=== PATIENT | female | born 1945 | race Caucasian/White ===

== ENCOUNTER → 2017-09-05 | Outpatient (CLI) | payer MEDICARE, OTHER | LOC: COL.LAB 11:03 | DX: Z01.812 Encounter for preprocedural laboratory examination (principal) ==

== ENCOUNTER 2017-09-28 13:13 | Inpatient (IN) | payer MEDICARE, OTHER ==
[~2017-09-28] VITALS: Ht 157.5 cm; Wt 59.5 kg
[2017-09-28 13:20] VITALS: BP 137/86; PULSE 82; TEMP 98
[2017-09-28] MEDS ORDERED: BRILINTA90 MG PO (13:24)
[2017-09-28] MEDS ORDERED: COREG 6.256.25 MG/TA PO (13:25)
[2017-09-28] MEDS ORDERED: PRINIVIL2.5 MG PO (13:26)
[2017-09-28] MEDS ORDERED: CRESTOR 10MG10 MG PO (13:27)
[2017-09-28] MEDS ORDERED: ASPIRIN E.C. 8181 MG PO (13:27)
[2017-09-28] MEDS ORDERED: FERREX 150150 MG PO (13:28)
[2017-09-28 13:48] LABS: BASO % 0.3 % (0.0-2.0); GRAN # 13.5 (1.4-6.5); GRAN % 87.9 % (42.2-75.2); LYMPH # 0.9 (1.2-3.4); LYMPH % 5.7 % (20.0-51.0); MEAN CELL VOLUME 93 fl (80.0-100.0); MEAN CORPUSCULAR HGB CONC 33 g/dl (33.0-37.0); MEAN PLATELET VOLUME 9.2 fl (7.4-10.4); MONO # 0.8 (0.1-0.6); MONO % 5.4 % (1.7-9.3); PLATELET COUNT 379 K/mm3 (130-400); RED BLOOD COUNT 3.59 M/mm3 (4.10-5.30); REDCELL DISTRIBUTION WIDTH-CV 14.3 % (11.5-14.5)
[2017-09-28 13:51] LABS: INR 1.2 (0.8-3.0); PROTHROMBIN TIME 13.4 SECONDS (9.7-12.8)
[2017-09-28 13:55] LABS: HEMATOCRIT 33.4 % (37.0-47.0); HEMOGLOBIN 10.9 g/dl (12.5-16.0); MEAN CORPUSCULAR HEMOGLOBIN 30 pg (27.0-31.0)
[2017-09-28 13:56] LABS: ALANINE AMINOTRANSFERASE 33 U/L (9-52); ALBUMIN 3.3 gm/dL (3.5-5.0); ALKALINE PHOSPHATASE 92 U/L (50-136); ANION GAP 9 mmol/L (7-16); AST,SGOT 31 U/L (15-37); BLOOD UREA NITROGEN 19 mg/dL (7-17); CALCIUM 8.7 mg/dL (8.4-10.2); CARBON DIOXIDE 22 mmol/L (22-30); CHLORIDE 107 mmol/L (98-107); CREATININE, serum 0.63 mg/dL (0.52-1.25); GLUCOSE 124 mg/dL (74-106); SODIUM 138 mmol/L (137-145); TOTAL PROTEIN 6.3 gm/dL (6.4-8.2)
[2017-09-28 14:03] LABS: PRE ALBUMIN 21.5 mg/dL (17.6-36.0)
[2017-09-28 14:12] LABS: TROPONIN-I < 0.012 ng/mL (0.000-0.034)
[2017-09-28 15:11] LABS: COLLECTION METHOD CATHETER
[2017-09-28 15:28] LABS: MUCOUS Present /lpf; PH 5 (5-8); SQUAMOUS EPITHELIAL 0-2 /hpf; URINE APPEARANCE Clear; URINE BACTERIA Rare /hpf; URINE BILIRUBIN Negative (NEGATIVE); URINE BLOOD Negative (NEGATIVE); URINE COLOR Yellow; URINE GLUCOSE Negative (NEGATIVE); URINE KETONE 1+ (NEGATIVE); URINE LEUKOCYTE ESTERASE Negative (NEGATIVE); URINE NITRATE Negative (NEGATIVE); URINE PROTEIN(semi-quant) Negative (NEGATIVE); URINE RBC 0-2 /hpf; URINE UROBILINOGEN Negative (NEGATIVE)
[2017-09-28] MEDS ORDERED: VITAMIN C500 MG PO (16:27)
[2017-09-28] MEDS ORDERED: B-121000 MCG PO (16:28)
[2017-09-28] MEDS ORDERED: VITAMIN D 1001000 IU PO (16:28)
[2017-09-28] MEDS ORDERED: SYNTHROID0.075 MG/T PO (16:28)
[2017-09-28] MEDS ORDERED: MULTI VITAMINS1 TAB PO (16:29)
[2017-09-28] MEDS ORDERED: CYTOMEL 2525 MCG/TAB PO (16:29)
[2017-09-28] MEDS ORDERED: VITAMIN B COMPL1 SGL PO (16:31)
[2017-09-28] MEDS ORDERED: NATURAL ZINC50 MG PO (16:31)
[2017-09-28] MEDS ORDERED: NAPROSYN500 MG PO (16:31)
[2017-09-28] MEDS ORDERED: NITROSTAT0.4 MG/TAB SL (16:32)
[2017-09-28] MEDS ORDERED: IODORAL PO (16:32)
[2017-09-28] MEDS ORDERED: ROXICODONE 55 MG/TAB PO (16:33)
[2017-09-28 16:37] LABS: TSH w REFLEX 0.015 uIU/mL (0.465-4.680)
[2017-09-28 17:49] VITALS: BP 118/51; PULSE 93; TEMP 98
[2017-09-28 20:26] VITALS: BP 111/62; PULSE 91; TEMP 98.3
[2017-09-28 21:35] VITALS: BP 111/62; PULSE 92; TEMP 98.3
[2017-09-29] VITALS (10 sets, daily range): BP systolic 103–136; BP diastolic 38–76; PULSE 48–102; TEMP 97.7–98.3
[2017-09-29 06:47] LABS: BASO % 0.4 % (0.0-2.0); EOS % 0.2 % (0-4.0); GRAN # 8.7 (1.4-6.5); GRAN % 76.5 % (42.2-75.2); LYMPH # 1.5 (1.2-3.4); LYMPH % 13.3 % (20.0-51.0); MEAN CELL VOLUME 94 fl (80.0-100.0); MEAN CORPUSCULAR HGB CONC 32 g/dl (33.0-37.0); MEAN PLATELET VOLUME 9.4 fl (7.4-10.4); MONO % 9.2 % (1.7-9.3); PLATELET COUNT 363 K/mm3 (130-400); RED BLOOD COUNT 3.23 M/mm3 (4.10-5.30); REDCELL DISTRIBUTION WIDTH-CV 14.6 % (11.5-14.5)
[2017-09-29 06:52] LABS: HEMATOCRIT 30.5 % (37.0-47.0); HEMOGLOBIN 9.8 g/dl (12.5-16.0); MEAN CORPUSCULAR HEMOGLOBIN 30 pg (27.0-31.0)
[2017-09-29 06:59] LABS: ANION GAP 9 mmol/L (7-16); BLOOD UREA NITROGEN 18 mg/dL (7-17); CALCIUM 8.9 mg/dL (8.4-10.2); CARBON DIOXIDE 24 mmol/L (22-30); CHLORIDE 103 mmol/L (98-107); CREATININE, serum 0.61 mg/dL (0.52-1.25); GLUCOSE 97 mg/dL (74-106); MAGNESIUM 1.7 mg/dL (1.6-2.3); SODIUM 136 mmol/L (137-145)
[2017-09-29 07:11] LABS: TROPONIN-I < 0.012 ng/mL (0.000-0.034)
[2017-09-30] VITALS (12 sets, daily range): BP systolic 76–131; BP diastolic 42–65; PULSE 76–96; TEMP 97–98.6
[2017-09-30 19:04] LABS: HEMATOCRIT 37.5 % (37.0-47.0)
[2017-09-30 19:05] LABS: HEMOGLOBIN 12.5 g/dl (12.5-16.0)
[2017-10-01] VITALS (15 sets, daily range): BP systolic 73–122; BP diastolic 42–58; PULSE 73–88; TEMP 97–98.7
[2017-10-01 01:15] LABS: BASO % 0.1 % (0.0-2.0); GRAN # 11.9 (1.4-6.5); HEMATOCRIT 30.2 % (37.0-47.0); HEMOGLOBIN 10.1 g/dl (12.5-16.0); LYMPH # 0.8 (1.2-3.4); LYMPH % 5.6 % (20.0-51.0); MEAN CELL VOLUME 90 fl (80.0-100.0); MEAN CORPUSCULAR HEMOGLOBIN 30 pg (27.0-31.0); MEAN CORPUSCULAR HGB CONC 33 g/dl (33.0-37.0); MEAN PLATELET VOLUME 9.4 fl (7.4-10.4); MONO # 0.8 (0.1-0.6); PLATELET COUNT 189 K/mm3 (130-400); RED BLOOD COUNT 3.37 M/mm3 (4.10-5.30)
[2017-10-01 01:27] LABS: ALBUMIN 2.1 gm/dL (3.5-5.0); BILIRUBIN,TOTAL 1.3 mg/dL (0.0-1.0); CALCIUM 7.3 mg/dL (8.4-10.2); CREATININE, serum 0.47 mg/dL (0.52-1.25); POTASSIUM 4.1 mmol/L (3.4-5.0); TOTAL PROTEIN 4.6 gm/dL (6.4-8.2)
[2017-10-01 07:52] LABS: BASO % 0.2 % (0.0-2.0); GRAN % 82.4 % (42.2-75.2); LYMPH % 9.1 % (20.0-51.0); MEAN CELL VOLUME 89 fl (80.0-100.0); MEAN CORPUSCULAR HGB CONC 34 g/dl (33.0-37.0); MEAN PLATELET VOLUME 9.7 fl (7.4-10.4); MONO # 0.9 (0.1-0.6); MONO % 7.8 % (1.7-9.3); PLATELET COUNT 185 K/mm3 (130-400); RED BLOOD COUNT 2.94 M/mm3 (4.10-5.30); REDCELL DISTRIBUTION WIDTH-CV 13.9 % (11.5-14.5)
[2017-10-01 08:08] LABS: INR 1.3 (0.8-3.0); PROTHROMBIN TIME 15.1 SECONDS (9.7-12.8)
[2017-10-01 08:12] LABS: HEMATOCRIT 26.1 % (37.0-47.0); HEMOGLOBIN 8.8 g/dl (12.5-16.0); MEAN CORPUSCULAR HEMOGLOBIN 30 pg (27.0-31.0)
[2017-10-01 08:34] LABS: CALCIUM 7.6 mg/dL (8.4-10.2); CREATININE, serum 0.51 mg/dL (0.52-1.25); POTASSIUM 4.1 mmol/L (3.4-5.0)
[2017-10-01 14:37] LABS: HEMATOCRIT 27.5 % (37.0-47.0); HEMOGLOBIN 9.2 g/dl (12.5-16.0)
[2017-10-01 20:35] LABS: HEMATOCRIT 27.2 % (37.0-47.0); HEMOGLOBIN 9.3 g/dl (12.5-16.0)
[2017-10-02] VITALS (12 sets, daily range): BP systolic 86–120; BP diastolic 33–60; PULSE 78–90; TEMP 36.8
[2017-10-02 04:41] LABS: BASO % 0.2 % (0.0-2.0); EOS % 0.1 % (0-4.0); GRAN # 6.6 (1.4-6.5); LYMPH # 1.5 (1.2-3.4); MEAN CELL VOLUME 89 fl (80.0-100.0); MEAN CORPUSCULAR HGB CONC 34 g/dl (33.0-37.0); MEAN PLATELET VOLUME 10.4 fl (7.4-10.4); MONO # 1.1 (0.1-0.6); MONO % 12.2 % (1.7-9.3); PLATELET COUNT 165 K/mm3 (130-400); RED BLOOD COUNT 2.88 M/mm3 (4.10-5.30); REDCELL DISTRIBUTION WIDTH-CV 14.8 % (11.5-14.5)
[2017-10-02 04:44] LABS: HEMATOCRIT 25.5 % (37.0-47.0); HEMOGLOBIN 8.7 g/dl (12.5-16.0); MEAN CORPUSCULAR HEMOGLOBIN 30 pg (27.0-31.0)
[2017-10-02 04:48] LABS: INR 1.1 (0.8-3.0); PROTHROMBIN TIME 13.2 SECONDS (9.7-12.8)
[2017-10-02 04:58] LABS: CALCIUM 7.6 mg/dL (8.4-10.2); CREATININE, serum 0.46 mg/dL (0.52-1.25); POTASSIUM 3.8 mmol/L (3.4-5.0)
[2017-10-02 10:14] LABS: HEMATOCRIT 27.3 % (37.0-47.0); HEMOGLOBIN 9.1 g/dl (12.5-16.0)
[2017-10-02 15:56] LABS: HEMATOCRIT 26.3 % (37.0-47.0); HEMOGLOBIN 8.9 g/dl (12.5-16.0)
[2017-10-02 22:22] LABS: HEMATOCRIT 24.7 % (37.0-47.0); HEMOGLOBIN 8.4 g/dl (12.5-16.0)
[2017-10-03 02:04] VITALS: BP 113/53; PULSE 85; TEMP 98
[2017-10-03 05:19] VITALS: BP 126/69; PULSE 83; TEMP 97.8
[2017-10-03 07:05] LABS: BASO % 0.3 % (0.0-2.0); EOS # 0.1 (0.0-0.7); EOS % 1.2 % (0-4.0); GRAN # 6.7 (1.4-6.5); GRAN % 71.4 % (42.2-75.2); LYMPH # 1.4 (1.2-3.4); LYMPH % 14.8 % (20.0-51.0); MEAN CELL VOLUME 92 fl (80.0-100.0); MEAN CORPUSCULAR HGB CONC 33 g/dl (33.0-37.0); MEAN PLATELET VOLUME 10.2 fl (7.4-10.4); MONO # 1.1 (0.1-0.6); MONO % 11.1 % (1.7-9.3); PLATELET COUNT 179 K/mm3 (130-400); RED BLOOD COUNT 2.97 M/mm3 (4.10-5.30); REDCELL DISTRIBUTION WIDTH-CV 15.2 % (11.5-14.5)
[2017-10-03 07:06] LABS: HEMATOCRIT 27.2 % (37.0-47.0); MEAN CORPUSCULAR HEMOGLOBIN 30 pg (27.0-31.0)
[2017-10-03 07:10] LABS: INR 1.1 (0.8-3.0); PROTHROMBIN TIME 12.9 SECONDS (9.7-12.8)
[2017-10-03 07:14] LABS: CREATININE, serum 0.46 mg/dL (0.52-1.25); POTASSIUM 3.8 mmol/L (3.4-5.0)
[2017-10-03] MEDS ORDERED: COREG 3.123.125 MG/T PO (08:02)
[2017-10-03] MEDS ORDERED: GOOD NEIGH1200 MG/15 PO (08:03)
[2017-10-03] MEDS ORDERED: DULCOLAX S10 MG/SUPP RC (08:03)
[2017-10-03] MEDS ORDERED: SENOKOT S 50 MG1 TAB PO ×2 (08:04→14:06)
[2017-10-03] MEDS ORDERED: NORCO 325 MG-7.1 TAB PO (08:10)
[2017-10-03] MEDS ORDERED: FERREX 150150 MG PO (09:18)
[2017-10-03 10:00] VITALS: BP 100/57; PULSE 81; TEMP 98.3
== END 2017-10-03 11:15 | DRG 466 ==
LOC: SURG 13:13
PROVIDERS: Nurse Anesthetist, Certified Registered; Nurse Practitioner; Nurse Practitioner Family; Orthopaedic Surgery; Physician Assistant
PROC: 0SP90JZ Removal of Synthetic Substitute from Right Hip Joint, Open Approach (ICD-10-PCS; 2017-09-30)
PROC: 0SR90JA Replacement of Right Hip Joint with Synthetic Substitute, Uncemented, Open Approach (ICD-10-PCS; principal; 2017-09-30 15:00)
DX: S72.001A Fracture of unspecified part of neck of right femur, initial encounter for closed fracture (principal); I21.3 ST elevation (STEMI) myocardial infarction of unspecified site; M97.01XA Periprosthetic fracture around internal prosthetic right hip joint, initial encounter; I50.22 Chronic systolic (congestive) heart failure; E87.1 Hypo-osmolality and hyponatremia; W18.30XA Fall on same level, unspecified, initial encounter; Z95.5 Presence of coronary angioplasty implant and graft; Z85.42 Personal history of malignant neoplasm of other parts of uterus; I25.10 Atherosclerotic heart disease of native coronary artery without angina pectoris; D50.0 Iron deficiency anemia secondary to blood loss (chronic); I95.81 Postprocedural hypotension
CPT/HCPCS: 99223-AI; 99232-AI; 99233-AI; 99239; A9284; C1776; J0690; J1100; J2060; J2250; J2270; J2704; J2765; J2795; J3010; J7030; J7070; J7120; J7121; P9016

== ENCOUNTER 2017-10-03 10:33 | Inpatient (IN) | payer MEDICARE, OTHER ==
[~2017-10-03] VITALS: Ht 152.4 cm; Wt 55.3 kg
[~2017-10-03 10:33] MED LIST: ASPIRIN E.C. 8181 MG PO; B-121000 MCG PO; BRILINTA90 MG PO; COREG 3.123.125 MG/T PO; COREG 6.256.25 MG/TA PO; CRESTOR 10MG10 MG PO; CYTOMEL 2525 MCG/TAB PO; DULCOLAX S10 MG/SUPP RC; FERREX 150150 MG PO; GOOD NEIGH1200 MG/15 PO; IODORAL PO; MULTI VITAMINS1 TAB PO; NAPROSYN500 MG PO; NATURAL ZINC50 MG PO; NITROSTAT0.4 MG/TAB SL; NORCO 325 MG-7.1 TAB PO; PRINIVIL2.5 MG PO; ROXICODONE 55 MG/TAB PO; SENOKOT S 50 MG1 TAB PO; SYNTHROID0.075 MG/T PO; VITAMIN B COMPL1 SGL PO; VITAMIN C500 MG PO; VITAMIN D 1001000 IU PO
[2017-10-03] MEDS ORDERED: SENOKOT S 50 MG1 TAB PO (14:06)
[2017-10-03 15:25] VITALS: BP 119/56; PULSE 78; TEMP 98.3
[2017-10-04 05:42] VITALS: BP 105/59; PULSE 81; TEMP 98.3
[2017-10-04 16:38] VITALS: BP 101/59; PULSE 88; TEMP 98.6
[2017-10-05 07:31] VITALS: BP 100/77; PULSE 65; TEMP 98.1
[2017-10-05 15:31] VITALS: BP 110/54; PULSE 79; TEMP 98.6
[2017-10-06 06:30] VITALS: BP 101/55; PULSE 79; TEMP 98.3
[2017-10-06 16:46] VITALS: BP 108/40; PULSE 80; TEMP 98.6
[2017-10-07] VITALS (15 sets, daily range): BP systolic 62–117; BP diastolic 27–64; PULSE 68–89; TEMP 98–98.8
[2017-10-07 06:43] LABS: MEAN CELL VOLUME 96 fl (80.0-100.0); MEAN CORPUSCULAR HGB CONC 32 g/dl (33.0-37.0); PLATELET COUNT 282 K/mm3 (130-400); RED BLOOD COUNT 3.09 M/mm3 (4.10-5.30); REDCELL DISTRIBUTION WIDTH-CV 16.4 % (11.5-14.5)
[2017-10-07 06:49] LABS: CALCIUM 8.4 mg/dL (8.4-10.2); CREATININE, serum 0.55 mg/dL (0.52-1.25)
[2017-10-07 06:51] LABS: HEMOGLOBIN 9.4 g/dl (12.5-16.0); MEAN CORPUSCULAR HEMOGLOBIN 30 pg (27.0-31.0)
[2017-10-07 06:52] LABS: HEMATOCRIT 29.5 % (37.0-47.0)
[2017-10-07 08:01] LABS: BAND 9 % (0-10); LYMPHOCYTE 25 % (20.0-51.0); NEUTROPHILS 62 % (42.0-75.2); PLATELET ESTIMATE NORMAL (NORMAL)
[2017-10-07 08:02] LABS: HYPOCHROMIA 2+
[2017-10-08 06:15] LABS: MEAN CELL VOLUME 99 fl (80.0-100.0); MEAN CORPUSCULAR HGB CONC 31 g/dl (33.0-37.0); MEAN PLATELET VOLUME 9.7 fl (7.4-10.4); PLATELET COUNT 268 K/mm3 (130-400); RED BLOOD COUNT 2.89 M/mm3 (4.10-5.30); REDCELL DISTRIBUTION WIDTH-CV 17.6 % (11.5-14.5)
[2017-10-08 06:17] LABS: HEMATOCRIT 28.5 % (37.0-47.0); HEMOGLOBIN 8.8 g/dl (12.5-16.0); MEAN CORPUSCULAR HEMOGLOBIN 30 pg (27.0-31.0)
[2017-10-08 06:30] VITALS: BP 111/58; PULSE 67; TEMP 98.2
[2017-10-08 07:02] LABS: BAND 10 % (0-10); EOSINOPHIL 2 % (0-4); LYMPHOCYTE 17 % (20.0-51.0); METAMYELOCYTE 3 % (0-0); MYELOCYTE 2 % (0-0); NEUTROPHILS 65 % (42.0-75.2); POLYCHROMASIA 2+
[2017-10-08 07:03] LABS: ANISOCYTOSIS 1+; HYPOCHROMIA 1+; PLATELET ESTIMATE NORMAL (NORMAL)
[2017-10-08 07:37] LABS: PATHOLOGY DIFF REVIEW OK
[2017-10-08 15:23] VITALS: BP 138/78; PULSE 77; TEMP 98.3
[2017-10-09 05:41] VITALS: BP 130/63; PULSE 79; TEMP 97.7
[2017-10-09 06:36] LABS: MEAN CELL VOLUME 99 fl (80.0-100.0); MEAN CORPUSCULAR HGB CONC 31 g/dl (33.0-37.0); MEAN PLATELET VOLUME 9.6 fl (7.4-10.4); PLATELET COUNT 321 K/mm3 (130-400); RED BLOOD COUNT 3.12 M/mm3 (4.10-5.30); REDCELL DISTRIBUTION WIDTH-CV 18.6 % (11.5-14.5)
[2017-10-09 06:50] LABS: HEMATOCRIT 30.9 % (37.0-47.0); HEMOGLOBIN 9.5 g/dl (12.5-16.0); MEAN CORPUSCULAR HEMOGLOBIN 30 pg (27.0-31.0)
[2017-10-09 08:25] LABS: ANISOCYTOSIS 1+; BAND 18 % (0-10); EOSINOPHIL 2 % (0-4); HYPOCHROMIA 3+; LYMPHOCYTE 16 % (20.0-51.0); METAMYELOCYTE 1 % (0-0); NEUTROPHILS 60 % (42.0-75.2); PLATELET ESTIMATE NORMAL (NORMAL)
[2017-10-09 18:01] VITALS: BP 108/56; PULSE 84; TEMP 98.9
[2017-10-10 03:11] VITALS: BP 119/63; PULSE 87; TEMP 98.5
[2017-10-10 16:08] VITALS: PULSE 84; TEMP 98.2
[2017-10-11 06:00] VITALS: BP 106/65; PULSE 79; TEMP 98.3
[2017-10-11 18:09] VITALS: BP 118/72
[2017-10-12 06:00] VITALS: BP 124/82; PULSE 74; TEMP 98.8
[2017-10-12 15:31] VITALS: BP 122/70; PULSE 86; TEMP 98.6
[2017-10-13 05:52] VITALS: BP 112/68; PULSE 74; TEMP 97.8
[2017-10-13 15:35] VITALS: BP 124/76; PULSE 82; TEMP 99
[2017-10-14 06:00] VITALS: BP 112/72; PULSE 78; TEMP 98.9
[2017-10-14 07:04] LABS: BASO % 0.5 % (0.0-2.0); EOS # 0.2 (0.0-0.7); EOS % 1.8 % (0-4.0); GRAN # 5.8 (1.4-6.5); GRAN % 71.7 % (42.2-75.2); LYMPH # 1.6 (1.2-3.4); LYMPH % 19.1 % (20.0-51.0); MEAN CELL VOLUME 101 fl (80.0-100.0); MEAN CORPUSCULAR HGB CONC 32 g/dl (33.0-37.0); MEAN PLATELET VOLUME 9.1 fl (7.4-10.4); MONO # 0.5 (0.1-0.6); MONO % 5.9 % (1.7-9.3); PLATELET COUNT 414 K/mm3 (130-400); RED BLOOD COUNT 3.37 M/mm3 (4.10-5.30); REDCELL DISTRIBUTION WIDTH-CV 21.4 % (11.5-14.5)
[2017-10-14 07:09] LABS: HEMOGLOBIN 10.7 g/dl (12.5-16.0); MEAN CORPUSCULAR HEMOGLOBIN 32 pg (27.0-31.0)
[2017-10-14 07:44] LABS: CALCIUM 8.6 mg/dL (8.4-10.2); CREATININE, serum 0.6 mg/dL (0.52-1.25)
[2017-10-14 15:12] VITALS: BP 100/50; PULSE 72; TEMP 98.6
[2017-10-14 17:20] VITALS: BP 107/72
[2017-10-15 06:00] VITALS: BP 108/66; PULSE 82; TEMP 97.8
[2017-10-15 15:08] VITALS: BP 114/80; PULSE 82; TEMP 98.4
[2017-10-16 06:00] VITALS: BP 100/72; PULSE 89; TEMP 97.9
[2017-10-16 09:25] VITALS: BP 120/74
[2017-10-16] MEDS ORDERED: TYLENOL 325MG325 MG PO (12:28)
== END 2017-10-16 17:00 | disposition home or self-care (01) | DRG 559 ==
PROVIDERS: Internal Medicine
DX: S72.21XD Displaced subtrochanteric fracture of right femur, subsequent encounter for closed fracture with routine healing (principal); I21.4 Non-ST elevation (NSTEMI) myocardial infarction; E87.1 Hypo-osmolality and hyponatremia; M97.01XD Periprosthetic fracture around internal prosthetic right hip joint, subsequent encounter; W18.30XD Fall on same level, unspecified, subsequent encounter; Z85.42 Personal history of malignant neoplasm of other parts of uterus; Z95.5 Presence of coronary angioplasty implant and graft; D50.0 Iron deficiency anemia secondary to blood loss (chronic); Z85.41 Personal history of malignant neoplasm of cervix uteri
CPT/HCPCS: 99222-AI; 99232-AI; 99233-AI; 99239; J7030